=== PATIENT | female | born 1960 | race Caucasian/White ===

== ENCOUNTER 2022-04-12 08:33 | Day surgery (SDC) | payer OTHER ==
[~2022-04-12] VITALS: Ht 162.6 cm; Wt 87.1 kg
[~2022-04-12 08:33] MED LIST: CEFAZOLIN SOD 1 GM in D5W 50 ML IV ONE
[2022-04-12] MEDS ORDERED: PROPOFOL 200MG/ 20ML VIAL (DIPRIVAN) IV ONE (13:05)
[2022-04-12] MEDS ORDERED: NS IRRIG SOLN 1000 ML IR ONE (13:05)
[2022-04-12] MEDS ORDERED: LR 1,000 ML IV.SOLN IV ONE (13:05)
[2022-04-12] MEDS ORDERED: METOCLOPRAMIDE HCL 10 MG/2 ML VIAL ONE (13:05)
[2022-04-12] MEDS ORDERED: MEPERIDINE 100 MG INJ. 100 MG/ML VIAL ONE (13:05)
[2022-04-12] MEDS ORDERED: ISOSULFAN BLUE 5 ML VIAL (LYMPHAZURIN) ONE (13:05)
[2022-04-12] MEDS ORDERED: fentaNYL CITRATE/PF 100 MCG/2 ML AMP ONE (13:05)
[2022-04-12] MEDS ORDERED: ceFAZolin SODIUM 1 GM VIAL ONE (13:05)
[2022-04-12] MEDS ORDERED: BUPIVACAINE /PF 0.25% 30 ML VIAL INJ ONE (13:05)
[2022-04-12] MEDS ORDERED: SEVOFLURANE 15 MIN GAS INH ONE (13:05)
[2022-04-12] MEDS ORDERED: LR 1,000 ML IV SCH (14:15)
[2022-04-12] MEDS ORDERED: ONDANSETRON HCL 4 MG/2 ML VIAL IVP PRN (14:15)
[2022-04-12] MEDS ORDERED: HYDROmorphone 1 MG/ML INJ. CARTRIDGE IVP PRN ×2 (14:15→14:30)
[2022-04-12] MEDS ORDERED: KETOROLAC TROMETHAMINE 30 MG VIAL IVP PRN (14:15)
[2022-04-12] MEDS ORDERED: METOCLOPRAMIDE HCL 10 MG/2 ML VIAL IVP PRN (14:15)
[2022-04-12] MEDS ORDERED: MEPERIDINE HCL/PF 25 MG/ML DISP.SYRIN IVP PRN (14:15)
[2022-04-12] MEDS ORDERED: HYDROcodone/ACETAMIN 5-325 MG TAB (NORCO/ VICODIN) PO PRN (14:30)
[2022-04-12] MEDS ORDERED: D5/0.45 NS 1,000 ML IV SCH (14:30)
[2022-04-12 17:39] VITALS: BP_SYST 132
== END 2022-04-12 15:57 | disposition home or self-care (01) ==
LOC: SDS 08:33 → SMU 08:34 → SDS 15:57
PROVIDERS: ATTEND Colon & Rectal Surgery
DX: C50.912 Malignant neoplasm of unspecified site of left female breast (principal); I10 Essential (primary) hypertension; E11.9 Type 2 diabetes mellitus without complications; E78.5 Hyperlipidemia, unspecified; E66.9 Obesity, unspecified; Z79.899 Other long term (current) drug therapy; Z20.822 Contact with and (suspected) exposure to COVID-19
CPT/HCPCS: 36415 ×2; 19301; 38525; 38792; 76098; 19281; 88307; 88333; 88334; 88342; 87426; U0003; A9541; J3490; J0690; J2765; J2704; J3010; J2175; Q9968; J7060; J7120; 78195

== ENCOUNTER 2022-05-24 05:10 | Day surgery (SDC) | payer OTHER ==
[~2022-05-24] VITALS: Ht 162.6 cm; Wt 89.4 kg
[2022-05-24] MEDS ORDERED: CEFAZOLIN SOD 1 GM/ ISO 50 ML PREMIX IV ONE (07:00)
[2022-05-24] MEDS ORDERED: MIDAZOLAM HCL 2 MG/2 ML VIAL (VERSED) ONE (07:45)
[2022-05-24] MEDS ORDERED: NS 50 ML BAG IV ONE (07:45)
[2022-05-24] MEDS ORDERED: NS IRRIG SOLN 1000 ML IR ONE (07:45)
[2022-05-24] MEDS ORDERED: ceFAZolin SODIUM 1 GM VIAL ONE (07:45)
[2022-05-24] MEDS ORDERED: BUPIVACAINE /EPINEPHRINE/PF 0.25% 30 ML VIAL ONE (07:45)
[2022-05-24] MEDS ORDERED: SUGAMMADEX SODIUM 200 MG/2 ML VIAL IV ONE (07:45)
[2022-05-24] MEDS ORDERED: ONDANSETRON HCL 4 MG/2 ML VIAL ONE (07:45)
[2022-05-24] MEDS ORDERED: LR 1,000 ML IV.SOLN IV ONE (07:45)
[2022-05-24] MEDS ORDERED: ROCURONIUM BROMIDE 10 MG/ML (ZEMURON) ONE (07:45)
[2022-05-24] MEDS ORDERED: PROPOFOL 200MG/ 20ML VIAL (DIPRIVAN) IV ONE (07:45)
[2022-05-24] MEDS ORDERED: fentaNYL CITRATE/PF 100 MCG/2 ML AMP ONE (07:45)
[2022-05-24] MEDS ORDERED: SEVOFLURANE 15 MIN GAS INH ONE (07:45)
[2022-05-24] MEDS ORDERED: METOCLOPRAMIDE HCL 10 MG/2 ML VIAL IVP PRN (08:45)
[2022-05-24] MEDS ORDERED: KETOROLAC TROMETHAMINE 30 MG VIAL IVP PRN (08:45)
[2022-05-24] MEDS ORDERED: ONDANSETRON HCL 4 MG/2 ML VIAL IVP PRN (08:45)
[2022-05-24] MEDS ORDERED: HYDROmorphone 1 MG/ML INJ. CARTRIDGE IVP PRN ×2 (08:45)
[2022-05-24] MEDS ORDERED: HYDROcodone/ACETAMIN 5-325 MG TAB (NORCO/ VICODIN) PO PRN (09:15)
[2022-05-24] MEDS ORDERED: D5/0.45 NS 1,000 ML IV SCH (09:15)
[2022-05-24 12:52] VITALS: BP_SYST 136
== END 2022-05-24 11:37 | disposition home or self-care (01) ==
LOC: SDS 05:10 → SMU 05:10 → SDS 11:37
PROVIDERS: ATTEND Colon & Rectal Surgery
DX: N63.20 Unspecified lump in the left breast, unspecified quadrant (principal); I10 Essential (primary) hypertension; E66.01 Morbid (severe) obesity due to excess calories; Z79.899 Other long term (current) drug therapy; Z68.34 Body mass index [BMI] 34.0-34.9, adult
CPT/HCPCS: 87081; 36571; 36415; 71045; 77001; 87426; J3490 ×2; J0690 ×2; J3465; J2405; J2704; J3010; J7120; C1788; 76000